=== PATIENT | female | born 1980 | race African-American/Black ===

== ENCOUNTER 2019-03-04 21:36 | Emergency (ER) | payer OTHER ==
[~2019-03-04] VITALS: Ht 170.2 cm; Wt 99.8 kg
--- NOTE | 2019-03-04 22:00 | NUR ---
ED Nurse Note: Recieved pt from home, here with c/o sob and "i just dont feel good", pt is 36 weeks , pt denies any difficultied, no vaginal bleeding, no cp, mild sob noted on exertion, pt has swollen ble and feet, pt also has increased b/p, takes b/p meds bid and did not take today, pt immediately gowned and assisted to monitoring, will resume care as ordered and closely monitor.
[2019-03-04 22:15] VITALS: BP 181/110
[2019-03-04 22:29] LABS: BASOPHILS % (AUTO) 0.3 % (0.0-2.0); EOSINOPHILS % (AUTO) 0.5 % (0.0-3.0); HEMATOCRIT 33.5 % (37.0-47.0); LYMPHOCYTES % (AUTO) 29.4 % (20.0-45.0); MEAN CORPUSCULAR VOLUME 79 FL (80-99); MONOCYTES % (AUTO) 4.6 % (1.0-10.0); NEUTROPHILS % (AUTO) 65.1 % (45.0-75.0); PLATELET COUNT 273 K/UL (150-450); RED BLOOD COUNT 4.26 M/UL (4.20-5.40); RED CELL DISTRIBUTION WIDTH 13.8 % (11.6-14.8); WHITE BLOOD COUNT 10.2 K/UL (4.8-10.8)
[2019-03-04 22:35] LABS: ANION GAP 11 mmol/L (5-15); BLOOD UREA NITROGEN 8 mg/dL (7-18); CALCIUM 9.2 MG/DL (8.5-10.1); CARBON DIOXIDE 21 MMOL/L (21-32); CHLORIDE 106 MMOL/L (98-107); CREATININE 0.7 MG/DL (0.55-1.30); POTASSIUM 3.7 MMOL/L (3.5-5.1); SODIUM 138 MMOL/L (136-145)
[2019-03-04 22:49] LABS: ALANINE AMINOTRANSFERASE 12 U/L (12-78); ALBUMIN 2.3 G/DL (3.4-5.0); ALBUMIN/GLOBULIN RATIO 0.6 (1.0-2.7); ALKALINE PHOSPHATASE 92 U/L (46-116); ASPARTATE AMINO TRANSFERASE 23 U/L (15-37); BILIRUBIN,TOTAL 0.2 MG/DL (0.2-1.0); CKMB 1.7 NG/ML (0.0-3.6); CREATINE KINASE 161 U/L (26-308)
--- NOTE | 2019-03-04 22:56 | NUR ---
ED Nurse Note: Multiple nurses encouraged patient to be transferred to [facility], instead of AMA, in spite of patient teaching. Pt is pleasant, and states, "Thank you ladies, but I have made up my mind."
[2019-03-04 23:00] VITALS: BP 169/151
--- NOTE | 2019-03-04 23:15 | NUR ---
ED Nurse Note: Pt continues to rest quietly in bed, pt also continues to refuse to be transferred for higher level of care which md states she needs, pt politely ask us to stop asking her, pt has friend at bedside, pt states to just treat her b/p and then she wants to go home, pt denies cp, no sob noted at rest, o2 dow=368% on ra, iv site intact and patent, will continue to monitor for effectiveness of b/p med given.
[2019-03-04 23:40] VITALS: BP 170/92
--- NOTE | 2019-03-05 00:10 | NUR ---
AMA: Pt leaving hospital AMA, awake, alert and oriented x 4, with friend, pt given copies of labs and states she is on the way to [facility] where she wants to deliver, sat and explained we can transfer her there, pt continues to refuse, pt signed form. SEE AMA FORM.
[2019-03-05 00:15] VITALS: BP 170/92
--- NOTE | 2019-03-05 03:04 | Emergency Room Report ---
History of Present Illness General Chief Complaint: Hypertension Source: Patient Present Illness HPI 38-year-old female presents ED for evaluation. Complaining of shortness of breath and leg swelling x1 day. Is 32 weeks . States that her blood pressure is also high. Was prescribed labetalol. denies chest pain. Denies fevers or chills. No other aggravating relieving factors. Denies any other associated symptoms Allergies: Uncoded Allergies: PCN (Allergy, Unknown, 03/04/19) Patient History Past Medical History: HTN Past Surgical History: none Pertinent Family History: none Social History: Denies: smoking, alcohol use, drug use Now: Yes : 1 Para: 0 Immunizations: UTD Reviewed Nursing Documentation: PMH: Agreed; PSxH: Agreed Nursing Documentation-PMH Past Medical History: No History, Except For Hx Hypertension: Yes Review of Systems All Other Systems: negative except mentioned in HPI Physical Exam Vital Signs Date Time Temp Pulse Resp B/P (MAP) Pulse Ox O2 Delivery O2 Flow Rate FiO2 03/04/19 21:40 97.9 106 26 191/114 (139) 94 Room Air Sp02 EP Interpretation: reviewed, normal General Appearance: no apparent distress, alert, GCS 15, non-toxic Head: normocephalic, atraumatic Eyes: bilateral eye normal inspection, bilateral eye PERRL ENT: hearing grossly normal, normal pharynx, no angioedema, normal voice Neck: full range of motion, supple/symm/no masses Respiratory: chest non-tender, lungs clear, normal breath sounds, speaking full sentences Cardiovascular #1: regular rate, rhythm, no edema Cardiovascular #2: 2+ carotid (R), 2+ carotid (L), 2+ radial (R), 2+ radial (L) , 2+ dorsalis pedis (R), 2+ dorsalis pedis (L) Gastrointestinal: normal bowel sounds, non tender, soft, non-distended, no guarding, no rebound, other - gravid uterus Rectal: deferred Genitourinary: normal inspection, no CVA tenderness Musculoskeletal: back normal, gait/station normal, normal range of motion, non- tender, swelling - 2+ pitting edema bilateral LEs Neurologic: alert, oriented x3, responsive, motor strength/tone normal, sensory intact, speech normal Psychiatric: judgement/insight normal, memory normal, mood/affect normal, no suicidal/homicidal ideation Reflexes: 3+ bicep (R), 3+ bicep (L), 3+ tricep (R), 3+ tricep (L), 3+ knee (R) , 3+ knee (L) Lymphatic: no adenopathy Medical Decision Making Diagnostic Impression: Primary Impression: Hypertension Qualified Codes: I10 - Essential (primary) hypertension Additional Impressions: Preeclampsia Qualified Codes: O14.93 - Unspecified pre-eclampsia, third trimester Elevated troponin ER Course Hospital Course 38 yo F presents with SOB, leg swelling. hypertensive. 32 weeks Differential diagnoses include: CHF. AR. preeclampsia Clinical course Patient placed on stretcher. on surveillance system monitor. After initial history and physical I ordered labs, EKG, chest x-ray, labetolol labs reviewed- no leukocytosis, hb/hct stable, platelets ok, trop 0.074. BNP elevated EKG - NSR, no acute ischemic changes interpreted by me Chest x-ray- effusion noted Concern for preeclampsia. given labetolol and hydralazine with BP improved discussed with Dr Thompson (OBGYN); agrees that patient would likely require higher level of care transfer to [facility] for possible delivery I discussed this with the patient. States that she would rather leave and go to [facility] herself. I strongly encouraged patient to allow us to transfer patient directly. Patient insists to leave and states that she made up her mind. Understands the risks of leaving. Patient has competency to make her own decisions. Signed AMA form. I. I feel this is a highly complex case requiring extensive working including EKG/Rhythm strip, Xray/CT/US, Blood/urine lab work, repeat exams while in ED, and administration of strong opiates/narcotics for pain control, admission to hospital or close patient follow up. Diagnosis - hypertension, preeclampsia, elevated troponin patient leaves AMA Labs Test 03/04/19 22:10 White Blood Count 10.2 K/UL (4.8-10.8) Red Blood Count 4.26 M/UL (4.20-5.40) Hemoglobin 11.0 G/DL (12.0-16.0) Hematocrit 33.5 % (37.0-47.0) Mean Corpuscular Volume 79 FL (80-99) Mean Corpuscular Hemoglobin 25.9 PG (27.0-31.0) Mean Corpuscular Hemoglobin Concent 33.0 G/DL (32.0-36.0) Red Cell Distribution Width 13.8 % (11.6-14.8) Platelet Count 273 K/UL (150-450) Mean Platelet Volume 6.4 FL (6.5-10.1) Neutrophils (%) (Auto) 65.1 % (45.0-75.0) Lymphocytes (%) (Auto) 29.4 % (20.0-45.0) Monocytes (%) (Auto) 4.6 % (1.0-10.0) Eosinophils (%) (Auto) 0.5 % (0.0-3.0) Basophils (%) (Auto) 0.3 % (0.0-2.0) Sodium Level 138 MMOL/L (136-145) Potassium Level 3.7 MMOL/L (3.5-5.1) Chloride Level 106 MMOL/L (98-107) Carbon Dioxide Level 21 MMOL/L (21-32) Anion Gap 11 mmol/L (5-15) Blood Urea Nitrogen 8 mg/dL (7-18) Creatinine 0.7 MG/DL (0.55-1.30) Estimat Glomerular Filtration Rate > 60 mL/min (>60) Glucose Level 105 MG/DL (74-106) Calcium Level 9.2 MG/DL (8.5-10.1) Total Bilirubin 0.2 MG/DL (0.2-1.0) Aspartate Amino Transf (AST/SGOT) 23 U/L (15-37) Alanine Aminotransferase (ALT/SGPT) 12 U/L (12-78) Alkaline Phosphatase 92 U/L (46-116) Total Creatine Kinase 161 U/L (26-308) Creatine Kinase MB 1.7 NG/ML (0.0-3.6) Creatine Kinase MB Relative Index 1.0 Troponin I 0.074 ng/mL (0.000-0.056) Pro-B-Type Natriuretic Peptide 818 pg/mL (0-125) Total Protein 6.4 G/DL (6.4-8.2) Albumin 2.3 G/DL (3.4-5.0) Globulin 4.1 g/dL Albumin/Globulin Ratio 0.6 (1.0-2.7) Human Chorionic Gonadotropin, Qual Positive (NEGATIVE) EKG Diagnostic Results Rate: normal Rhythm: NSR ST Segments: no acute changes ASA given to the pt in ED: No Rhythm Strip Diag. Results EP Interpretation: yes Rhythm: NSR, no PVC's, no ectopy Chest X-Ray Diagnostic Results Chest X-Ray Diagnostic Results : Chest X-Ray Ordered: Yes # of Views/Limited/Complete: 1 View Indication: Shortness of Breath EP Interpretation: Yes Interpretation: no consolidation, no pneumothorax, no acute cardiopulmonary disease, other - effusion Impression: Other - effusion Electronically Signed by: Electronically signed by Carlito Madrid MD Last Vital Signs Date Time Temp Pulse Resp B/P (MAP) Pulse Ox O2 Delivery O2 Flow Rate FiO2 03/05/19 00:15 97.9 99 26 170/92 98 Room Air Status: improved Disposition: AGAINST MEDICAL ADVICE Condition: Serious Referrals: [facility],REFERRING (PCP) Carlito Madrid MD Mar 05, 2019 03:04
--- NOTE | 2019-03-05 16:19 | Diagnostic Imaging Report ---
Indication: Short of breath Technique: One view of the chest Comparison: none Findings: Body habitus limits evaluation. Heart is borderline enlarged. There is equivocal minimal interstitial congestion. The left hemidiaphragm is obscured; there could be some consolidation, pleural fluid, or atelectasis at the left lung base Impression: Borderline cardiomegaly Equivocal minimal interstitial congestion Cannot rule out pleural and/or parenchymal disease at the left lung base
== END 2019-03-05 00:15 | disposition left against medical advice (07) ==
LOC: EMR 22:05
DX: O16.3 Unspecified maternal hypertension, third trimester (principal); O14.93 Unspecified pre-eclampsia, third trimester; Z3A.32 32 weeks gestation of pregnancy; R79.89 Other specified abnormal findings of blood chemistry
CPT/HCPCS: 36415; 71045; 80053; 82550; 82553; 83880; 84484; 84703; 85025; 93005; 96374; 99284; J0360

== ENCOUNTER 2019-03-20 11:57 | Emergency (ER) | payer OTHER ==
[~2019-03-20] VITALS: Ht 170.2 cm; Wt 99.8 kg
[2019-03-20 12:04] VITALS: BP 155/93
--- NOTE | 2019-03-20 13:19 | Emergency Room Report ---
History of Present Illness General Chief Complaint: Edema Source: Patient (Corey Delgado) Present Illness HPI [id number] female with history of hypertension currently controlled who recently had an emergency 9 days ago here complaining of bilateral lower extremity edema and pain. Patient reports that the edema started a month ago however she did not mention that to her COMPONENT INSPECTOR when she had the emergency C- section at [facility] 9 days ago. Patient reports that she had preeclampsia and was controlled. Denies numbness and tingling in the lower legs. Rating the pain 10 out of 10 without radiation. Has taken ibuprofen, Motrin, Tylenol with minimal relief. Denies chest pain, shortness of breath, palpitation, dizziness, headache, nausea vomiting. Patient denies past history of DVT. Bilateral lower extremity are erythematous however no calf tenderness noted. Left dorsalis pedis is 2+ however faint arterial pulse noted on the right foot. Patient refuses to do arterial duplex. Refuses to do EKG. Patient leaves earlier today due to a family emergency and comes back for the remaining of labs. (Corey Delgado) Allergies: Uncoded Allergies: PCN (Allergy, Unknown, 03/04/19) Patient History Now: No Reviewed Nursing Documentation: PMH: Agreed; PSxH: Agreed (Corey Delgado) Nursing Documentation-PMH Hx Hypertension: Yes (Corey Delgado) Review of Systems All Other Systems: negative except mentioned in HPI (Corey Delgado) Physical Exam Vital Signs Date Time Temp Pulse Resp B/P (MAP) Pulse Ox O2 Delivery O2 Flow Rate FiO2 03/20/19 12:04 98.1 115 20 155/93 (113) 97 Room Air Sp02 EP Interpretation: reviewed, normal General Appearance: no apparent distress, alert, GCS 15, non-toxic Head: normocephalic, atraumatic Eyes: bilateral eye normal inspection, bilateral eye PERRL ENT: hearing grossly normal, normal pharynx, no angioedema, normal voice Neck: full range of motion, supple/symm/no masses Respiratory: chest non-tender, lungs clear, normal breath sounds, speaking full sentences Cardiovascular #1: regular rate, rhythm, no edema Cardiovascular #2: 1+ dorsalis pedis (R); 2+ dorsalis pedis (L) Gastrointestinal: normal inspection, non tender Musculoskeletal: normal inspection, back normal, digits/nails normal, swelling - Both lower extremities Neurologic: alert, oriented x3, responsive, motor strength/tone normal, sensory intact, speech normal Psychiatric: judgement/insight normal, memory normal, mood/affect normal, no suicidal/homicidal ideation Skin: no rash Lymphatic: normal inspection, no adenopathy (Corey Delgado) Medical Decision Making PA Attestation All diagnoses and treatment plans were reviewed and discussed with my supervising physician Dr. Javier (Corey Delgado) Diagnostic Impression: Primary Impression: Bilateral leg edema ER Course 38-year-old female with history of hypertension currently controlled who recently had an emergency 9 days ago here complaining of bilateral lower extremity edema and pain. Patient reports that the edema started a month ago however she did not mention that to her COMPONENT INSPECTOR when she had the emergency C- section at [facility] 9 days ago. Patient reports that she had preeclampsia and was controlled. Denies numbness and tingling in the lower legs. Rating the pain 10 out of 10 without radiation. Has taken ibuprofen, Motrin, Tylenol with minimal relief. Denies chest pain, shortness of breath, palpitation, dizziness, headache, nausea vomiting. Patient denies past history of DVT. Bilateral lower extremity are erythematous however no calf tenderness noted. Left dorsalis pedis is 2+ however faint arterial pulse noted on the right foot. Patient refuses to do arterial duplex. Refuses to do EKG. Patient leaves earlier today due to a family emergency and comes back for the remaining of labs. Ddx considered but are not limited to : Cellulitis, DVT, peripheral arterial disease, pulmonary embolus Vital signs: are WNL, pt. is afebrile H&PE are most consistent with: Bilateral lower extremity edema ORDERS: Bilateral duplex venous ultrasound, arterial duplex ultrasound of right lower extremity, CBC, CMP, d-dimer, UA ED INTERVENTIONS: Lasix, DISCHARGE: At this time pt. is stable for d/c to home. Will provide printed patient care instructions, and any necessary prescriptions. Care plan and follow up instructions have been discussed with the patient prior to discharge. Patient to follow-up with her primary care provider patient refused to do EKG as well as arterial duplex however patient has had this kind of edema for more than a month and to follow-up with her primary care low risk for DVT as well as pulmonary embolus even though the d-dimer was elevated which can be secondary to post and . Return to the emergency room with worsening symptoms patient stable at time of discharge and agrees to follow-up with her primary care and collect her medical records later. (Corey Delgado) Last Vital Signs Date Time Temp Pulse Resp B/P (MAP) Pulse Ox O2 Delivery O2 Flow Rate FiO2 03/20/19 12:04 98.1 115 20 155/93 97 Room Air (Corey Delgado) Disposition: AGAINST MEDICAL ADVICE Condition: Stable Scripts Naproxen* (NAPROXEN*) 500 Mg Tablet 500 MG ORAL TWICE A DAY, #30 TAB Prov: Corey Delgado 03/20/19 Furosemide* (LASIX*) 20 Mg Tablet 20 MG ORAL DAILY for 5 Days, #10 TAB Prov: Corey Delgado 03/20/19 Referrals: NON PHYSICIAN (PCP) Patient Instructions: Edema, [id number] Additional Instructions: Follow-up with primary care provider regarding her high blood pressure as well as leg edema. You are signing AGAINST MEDICAL ADVICE however arterial and venous ultrasound of bilateral lower extremities were ordered but not completed. Corey Delgado Mar 20, 2019 13:19 Nadir Javier MD Mar 20, 2019 14:42
[2019-03-20] MEDS ORDERED: NAPROXEN500 M2 ORAL (13:21)
[2019-03-20] MEDS ORDERED: FUROSEMIDE20 M1 ORAL (13:21)
[2019-03-20 13:25] VITALS: BP 155/93
[2019-03-20 13:34] LABS: BASOPHILS % (AUTO) 0.4 % (0.0-2.0); EOSINOPHILS % (AUTO) 0.3 % (0.0-3.0); HEMATOCRIT 33.8 % (37.0-47.0); HEMOGLOBIN 10.6 G/DL (12.0-16.0); LYMPHOCYTES % (AUTO) 19.6 % (20.0-45.0); MEAN CORPUSCULAR VOLUME 84 FL (80-99); MONOCYTES % (AUTO) 3.8 % (1.0-10.0); NEUTROPHILS % (AUTO) 75.9 % (45.0-75.0); PLATELET COUNT 504 K/UL (150-450); RED BLOOD COUNT 4.03 M/UL (4.20-5.40); WHITE BLOOD COUNT 13.2 K/UL (4.8-10.8)
[2019-03-20 13:36] LABS: APPEARANCE,URINE CLEAR; BILIRUBIN, URINE NEGATIVE (NEGATIVE); COLOR,URINE PALE YELLOW; GLUCOSE, URINE (UA) NEGATIVE (NEGATIVE); KETONES,URINE NEGATIVE (NEGATIVE); LEUKOCYTE ESTERASE ,URINE 1+ (NEGATIVE); NITRITE,URINE NEGATIVE (NEGATIVE); PH,URINE 7 (4.5-8.0); PROTEIN,URINE 3+ (NEGATIVE); UROBILINOGEN,URINE NORMAL MG/DL (0.0-1.0)
[2019-03-20 13:44] LABS: ANION GAP 10 mmol/L (5-15); BLOOD UREA NITROGEN 9 mg/dL (7-18); CALCIUM 9.7 MG/DL (8.5-10.1); CARBON DIOXIDE 24 MMOL/L (21-32); CHLORIDE 109 MMOL/L (98-107); CREATININE 0.8 MG/DL (0.55-1.30); SODIUM 143 MMOL/L (136-145)
[2019-03-20 13:49] LABS: ALANINE AMINOTRANSFERASE 23 U/L (12-78); ALBUMIN 2.7 G/DL (3.4-5.0); ALBUMIN/GLOBULIN RATIO 0.5 (1.0-2.7); ALKALINE PHOSPHATASE 93 U/L (46-116); ASPARTATE AMINO TRANSFERASE 24 U/L (15-37); BILIRUBIN,TOTAL 0.3 MG/DL (0.2-1.0)
[2019-03-20 13:55] LABS: INR 0.9 (0.9-1.1)
--- NOTE | 2019-03-20 14:45 | Emergency Room Report ---
Physical Exam Vital Signs Date Time Temp Pulse Resp B/P (MAP) Pulse Ox O2 Delivery O2 Flow Rate FiO2 03/20/19 12:04 98.1 115 20 155/93 (113) 97 Room Air Medical Decision Making Diagnostic Impression: Primary Impression: Bilateral leg edema ER Course Briefly, this is a 38-year-old female who presented for evaluation of bilateral lower extremity edema going on for several months. Evaluated by Danny who had ordered bilateral lower extremity Doppler studies as well as an arterial Doppler study for pulse deficit. The patient was seen by me when I was notified that she intended to leave AGAINST MEDICAL ADVICE. She states she had an acute family emergency that she had to take care of right away. She understood the risks including possible loss of limb or severe life- threatening medical condition if she were to forego testing at this time. She was ambulatory and in no acute distress when she left the emergency department. She did promise to return. She verbalized understanding of the risks, understanding the further work-up that was intended to be completed in the emergency department and that she may require further treatment. Patient was of sound mind and able to make her own medical decisions. She signed her AMA paperwork and left the department Last Vital Signs Date Time Temp Pulse Resp B/P (MAP) Pulse Ox O2 Delivery O2 Flow Rate FiO2 03/20/19 13:25 98.1 100 20 155/93 97 Room Air Disposition: HOME, SELF-CARE Condition: Stable Scripts Naproxen* (NAPROXEN*) 500 Mg Tablet 500 MG ORAL TWICE A DAY, #30 TAB Prov: Corey Delgado 03/20/19 Furosemide* (LASIX*) 20 Mg Tablet 20 MG ORAL DAILY for 5 Days, #10 TAB Prov: Corey Delgado 03/20/19 Referrals: NON PHYSICIAN (PCP) Patient Instructions: Edema, [id number] Additional Instructions: Follow-up with primary care provider regarding her high blood pressure as well as leg edema. You are signing AGAINST MEDICAL ADVICE however arterial and venous ultrasound of bilateral lower extremities were ordered but not completed. Nadir Javier MD Mar 20, 2019 14:45
[2019-03-20] MEDS ORDERED: ACETAMINOPHEN-1 EAC1 ORAL (18:30)
== END 2019-03-20 13:25 | disposition left against medical advice (07) ==
LOC: EMR 12:36
DX: R60.0 Localized edema (principal); M79.605 Pain in left leg; M79.604 Pain in right leg; I10 Essential (primary) hypertension; Z88.0 Allergy status to penicillin
CPT/HCPCS: 36415; 80053; 81001; 85025; 85379; 85610; 85730; 86850; 86900; 86901; 96372; 99284; J1940

== ENCOUNTER 2019-03-20 16:47 | Emergency (ER) | payer OTHER ==
[~2019-03-20] VITALS: Ht 170.2 cm; Wt 99.8 kg
[~2019-03-20 16:47] MED LIST: FUROSEMIDE20 M1 ORAL; NAPROXEN500 M2 ORAL
[2019-03-20 17:14] VITALS: BP 147/102
[2019-03-20] MEDS ORDERED: Naproxen 500mg tab ORAL ONE (18:15)
--- NOTE | 2019-03-20 18:28 | Diagnostic Imaging Report ---
Indication: Bilateral lower extremity pain Technique: Grayscale and duplex images of the bilateral lower extremity veins. Comparison: none Findings: Bilaterally, grayscale and duplex imaging demonstrates no evidence of intraluminal thrombus. Normal phasic Doppler waveforms demonstrating normal augmentation response and no evidence of valvular insufficiency. No evidence of valvular insufficiency. Incidentally noted is edema of the subcutaneous fat bilaterally. Impression: Negative for evidence of lower extremity deep vein thrombosis bilaterally Incidental finding of edema of the subcutaneous fat bilaterally
--- NOTE | 2019-03-20 18:28 | Emergency Room Report ---
History of Present Illness General Chief Complaint: Edema Source: Patient Present Illness HPI 38-year-old female with history of hypertension currently controlled who recently had an emergency 9 days ago here complaining of bilateral lower extremity edema and pain. Patient reports that the edema started a month ago however she did not mention that to her [employer]PER[employer] when she had the emergency C- section at [facility] 9 days ago. Patient reports that she had preeclampsia and was controlled. Denies numbness and tingling in the lower legs. Rating the pain 10 out of 10 without radiation. Has taken ibuprofen, Motrin, Tylenol with minimal relief. Denies chest pain, shortness of breath, palpitation, dizziness, headache, nausea vomiting. Patient denies past history of DVT. Bilateral lower extremity are erythematous however no calf tenderness noted. Left dorsalis pedis is 2+ however faint arterial pulse noted on the right foot. Patient refuses to do arterial duplex. Refuses to do EKG. Patient leaves earlier today due to a family emergency and comes back for the remaining of labs. Allergies: Uncoded Allergies: PCN (Allergy, Unknown, 03/04/19) Patient History Past Medical History: see triage record Past Surgical History: unable to obtain Pertinent Family History: none Now: No Immunizations: UTD Reviewed Nursing Documentation: PMH: Agreed; PSxH: Agreed Nursing Documentation-PMH Hx Hypertension: Yes Review of Systems All Other Systems: negative except mentioned in HPI Physical Exam Vital Signs Date Time Temp Pulse Resp B/P (MAP) Pulse Ox O2 Delivery O2 Flow Rate FiO2 03/20/19 16:58 98.4 101 20 147/102 (117) 98 Room Air Sp02 EP Interpretation: reviewed, abnormal - Elevated blood pressure General Appearance: no apparent distress, alert, GCS 15, non-toxic, mild distress, obese Head: normocephalic, atraumatic Eyes: bilateral eye normal inspection, bilateral eye PERRL ENT: hearing grossly normal, normal pharynx, no angioedema, normal voice Neck: full range of motion, supple/symm/no masses Respiratory: chest non-tender, lungs clear, normal breath sounds, speaking full sentences Cardiovascular #1: regular rate, rhythm, no edema, no murmur, no rub, normal capillary refill Cardiovascular #2: 2+ carotid (R), 2+ carotid (L), 2+ radial (R), 2+ radial (L) ; 1+ dorsalis pedis (R); 2+ dorsalis pedis (L) Gastrointestinal: normal inspection, non tender, soft, no mass, scaphoid Genitourinary: no CVA tenderness Musculoskeletal: back normal, digits/nails normal, gait/station normal, swelling - Bilateral lower extremities Neurologic: normal inspection, alert, oriented x3, responsive Psychiatric: normal inspection, judgement/insight normal, memory normal Skin: no rash Lymphatic: normal inspection, no adenopathy Medical Decision Making PA Attestation All my diagnosis and treatment plans were reviewed ad discussed with my supervising physician Dr. Branch Diagnostic Impression: Primary Impression: Bilateral lower extremity edema ER Course 38-year-old female with history of hypertension currently controlled who recently had an emergency 9 days ago here complaining of bilateral lower extremity edema and pain. Patient reports that the edema started a month ago however she did not mention that to her [employer] when she had the emergency C- section at [facility] 9 days ago. Patient reports that she had preeclampsia and was controlled. Denies numbness and tingling in the lower legs. Rating the pain 10 out of 10 without radiation. Has taken ibuprofen, Motrin, Tylenol with minimal relief. Denies chest pain, shortness of breath, palpitation, dizziness, headache, nausea vomiting. Patient denies past history of DVT. Bilateral lower extremity are erythematous however no calf tenderness noted. Left dorsalis pedis is 2+ however faint arterial pulse noted on the right foot. Patient refuses to do arterial duplex. Refuses to do EKG. Patient leaves earlier today due to a family emergency and comes back for the remaining of labs. Ddx considered but are not limited to : Cellulitis, DVT, peripheral arterial disease, pulmonary embolus Vital signs: are WNL, pt. is afebrile H&PE are most consistent with: Bilateral lower extremity edema ORDERS: Bilateral duplex venous ultrasound, arterial duplex ultrasound of right lower extremity, CBC, CMP, d-dimer, UA ED INTERVENTIONS: Lasix, DISCHARGE: At this time pt. is stable for d/c to home. Will provide printed patient care instructions, and any necessary prescriptions. Care plan and follow up instructions have been discussed with the patient prior to discharge. Patient to follow-up with her primary care provider patient refused to do EKG as well as arterial duplex however patient has had this kind of edema for more than a month and to follow-up with her primary care low risk for DVT as well as pulmonary embolus even though the d-dimer was elevated which can be secondary to post and . Return to the emergency room with worsening symptoms patient stable at time of discharge and agrees to follow-up with her primary care and collect her medical records later. CT/MRI/US Diagnostic Results CT/MRI/US Diagnostic Results : Imaging Test Ordered: Bilateral venous duplex ultrasound Impression No signs of DVT Last Vital Signs Date Time Temp Pulse Resp B/P (MAP) Pulse Ox O2 Delivery O2 Flow Rate FiO2 03/20/19 17:14 98.4 101 20 147/102 98 Room Air Disposition: HOME, SELF-CARE Condition: Stable Scripts Acetaminophen With Codeine (T#3) (TYLENOL #3 TAB*) Y Tab 1 TAB ORAL Q8HR PRN for For Pain for 3 Days, #10 TAB Prov: Corey Delgado 03/20/19 Referrals: NON PHYSICIAN (PCP) Patient Instructions: Edema, [id number] Additional Instructions: Follow-up with your primary care provider take medication as directed elevate affected area if worsening symptoms return to emergency room Corey Delgado Mar 20, 2019 18:28
[2019-03-20] MEDS ORDERED: ACETAMINOPHEN-1 EAC1 ORAL (18:30)
[2019-03-20 18:35] VITALS: BP 147/102
== END 2019-03-20 18:35 | disposition home or self-care (01) ==
LOC: EMR 17:50
DX: R60.0 Localized edema (principal); M79.605 Pain in left leg; M79.604 Pain in right leg; I10 Essential (primary) hypertension; Z88.0 Allergy status to penicillin
CPT/HCPCS: 93970; 99284